=== PATIENT | female | born 1945 | race Caucasian/White ===

== ENCOUNTER 2019-09-08 12:28 | Inpatient (IN) ==
[2019-09-08] MEDS ORDERED: Ibuprofen 600 MG TABLET PO PRN (13:35)
[2019-09-08] MEDS ORDERED: *HR* OxyCODONE/APAP 5/325 TABLET PO PRN (13:35)
[2019-09-08] MEDS: Ibuprofen 600 MG TABLET PO PRN (21:56)
[2019-09-09 05:27] LABS: Basophils % 0.5 %; Eosinophils # 0.3 K/mcL (0.0-0.6); Eosinophils % 7.4 %; Hematocrit 32.3 % (35.3-44.9); Hemoglobin 10.4 g/dL (11.5-15.4); Immature Granulocytes % 0.2 % (0-4); Lymphocytes # 1.3 K/mcL (0.6-4.6); Lymphocytes % 29.5 %; Mean Corpuscular HGB Conc 32.2 g/dL (31.6-35.5); Mean Corpuscular Hemoglobin 29.2 pg (28.0-33.3); Mean Corpuscular Volume 90.7 fL (83.0-100.0); Monocytes % 10.1 %; Neutrophils # 2.3 K/mcL (1.6-8.9); Platelet Count 220 K/mcL (140-400); Red Blood Count 3.56 M/mcL (3.82-4.97); Red Cell Distribution Width 13.8 % (11.5-14.5); Segmented Neutrophils % 52.3 %; White Blood Count 4.4 K/mcL (4.3-11.1)
[2019-09-09 05:38] LABS: Monocytes # 0.4 K/mcL (0.0-1.3)
[2019-09-09 05:41] LABS: Activated Partial Thrombo Time 33.3 Seconds (26.0-36.0); INR 1.1; Prothrombin Time 12.1 Seconds (9.4-12.1)
[2019-09-09 05:46] LABS: eGFR For African Americans > 60 (> 60); eGFR For Non-African Americans > 60 (> 60)
[2019-09-09] MEDS: Cholecalciferol (D-3) 1,000 UNIT (25MCG) TABLET PO SCH (09:28)
[2019-09-09] MEDS: Aspirin Enteric Coated 81 MG Tablet PO SCH (09:28)
[2019-09-09] MEDS: FLUOROURACIL 5% TP SCH ×2 (09:30→16:30)
[2019-09-09] MEDS: Tadalafil [Cialis] 20 MG Tablet PO SCH ×2 (09:30→16:30)
[2019-09-09] MEDS: BIOTIN 5 MG PO SCH ×2 (09:30→16:30)
[2019-09-09] MEDS: Ibuprofen 600 MG TABLET PO PRN ×2 (09:40→22:23)
[2019-09-10] MEDS: BIOTIN 5 MG PO SCH (08:57)
[2019-09-10] MEDS: Aspirin Enteric Coated 81 MG Tablet PO SCH (08:57)
[2019-09-10] MEDS: Cholecalciferol (D-3) 1,000 UNIT (25MCG) TABLET PO SCH (08:58)
[2019-09-10] MEDS: Ibuprofen 600 MG TABLET PO PRN ×2 (09:01→20:14)
[2019-09-10] MEDS: Psyllium 1 PACKET POWD.PACK PO SCH ×2 (14:22→20:14)
[2019-09-10] MEDS: FLUOROURACIL 5% TP SCH (14:24)
[2019-09-11] MEDS: Ibuprofen 600 MG TABLET PO PRN ×2 (09:39→20:25)
[2019-09-11] MEDS: BIOTIN 5 MG PO SCH (09:40)
[2019-09-11] MEDS: Psyllium 1 PACKET POWD.PACK PO SCH ×2 (09:40→20:26)
[2019-09-11] MEDS: Cholecalciferol (D-3) 1,000 UNIT (25MCG) TABLET PO SCH (09:40)
[2019-09-11] MEDS: Aspirin Enteric Coated 81 MG Tablet PO SCH (09:40)
[2019-09-11] MEDS: Tadalafil [Cialis] 20 MG Tablet PO SCH (09:41)
[2019-09-11] MEDS: FLUOROURACIL 5% TP SCH (09:44)
[2019-09-12 06:34] LABS: Basophils % 0.6 %; Eosinophils # 0.4 K/mcL (0.0-0.6); Eosinophils % 5.9 %; Hematocrit 32.8 % (35.3-44.9); Hemoglobin 10.5 g/dL (11.5-15.4); Immature Granulocytes % 0.3 % (0-4); Lymphocytes # 1.3 K/mcL (0.6-4.6); Lymphocytes % 18.5 %; Mean Corpuscular Hemoglobin 29.2 pg (28.0-33.3); Mean Corpuscular Volume 91.1 fL (83.0-100.0); Mean Platelet Volume 9.4 fL (9.4-12.4); Monocytes # 0.7 K/mcL (0.0-1.3); Monocytes % 10.4 %; Neutrophils # 4.4 K/mcL (1.6-8.9); Platelet Count 270 K/mcL (140-400); Red Cell Distribution Width 14.3 % (11.5-14.5); Segmented Neutrophils % 64.3 %; White Blood Count 6.8 K/mcL (4.3-11.1)
[2019-09-12 06:55] LABS: BUN/Creatinine Ratio 26 (6-26); Blood Urea Nitrogen 12 mg/dL (8-23); Calcium 8.4 mg/dL (8.6-10.3); Carbon Dioxide 29 mEq/L (23-29); Chloride 106 mEq/L (98-107); Glucose 84 mg/dL (70-105); Osmolality,Calculated 293 (280-300); Potassium 3.9 mEq/L (3.5-5.1); Sodium 142 mEq/L (136-145); eGFR For African Americans > 60 (> 60); eGFR For Non-African Americans > 60 (> 60)
[2019-09-12] MEDS: Aspirin Enteric Coated 81 MG Tablet PO SCH (08:25)
[2019-09-12] MEDS: Cholecalciferol (D-3) 1,000 UNIT (25MCG) TABLET PO SCH (08:25)
[2019-09-12] MEDS: Psyllium 1 PACKET POWD.PACK PO SCH ×2 (08:25→20:01)
[2019-09-12] MEDS: BIOTIN 5 MG PO SCH (08:28)
[2019-09-12] MEDS: Ibuprofen 600 MG TABLET PO PRN ×2 (09:01→21:57)
[2019-09-12] MEDS: FLUOROURACIL 5% TP SCH (09:02)
[2019-09-12] MEDS ORDERED: *HR* LORazepam 0.5 MG TABLET PO PRN (13:08)
[2019-09-13] MEDS: Aspirin Enteric Coated 81 MG Tablet PO SCH (09:08)
[2019-09-13] MEDS: Cholecalciferol (D-3) 1,000 UNIT (25MCG) TABLET PO SCH (09:08)
[2019-09-13] MEDS: Ibuprofen 600 MG TABLET PO PRN ×2 (09:08→22:31)
[2019-09-13] MEDS: Psyllium 1 PACKET POWD.PACK PO SCH ×2 (09:08→19:43)
[2019-09-13] MEDS: BIOTIN 5 MG PO SCH (09:13)
[2019-09-13] MEDS: Tadalafil [Cialis] 20 MG Tablet PO SCH (09:13)
[2019-09-13] MEDS: FLUOROURACIL 5% TP SCH (10:33)
[2019-09-14] MEDS: Aspirin Enteric Coated 81 MG Tablet PO SCH (09:48)
[2019-09-14] MEDS: Cholecalciferol (D-3) 1,000 UNIT (25MCG) TABLET PO SCH (09:48)
[2019-09-14] MEDS: Psyllium 1 PACKET POWD.PACK PO SCH ×2 (09:48→21:09)
[2019-09-14] MEDS: FLUOROURACIL 5% TP SCH (09:49)
[2019-09-14] MEDS: BIOTIN 5 MG PO SCH (09:52)
[2019-09-14] MEDS: Ibuprofen 600 MG TABLET PO PRN ×2 (11:27→21:09)
[2019-09-15] MEDS: BIOTIN 5 MG PO SCH (09:08)
[2019-09-15] MEDS: Cholecalciferol (D-3) 1,000 UNIT (25MCG) TABLET PO SCH (09:08)
[2019-09-15] MEDS: FLUOROURACIL 5% TP SCH (09:08)
[2019-09-15] MEDS: Tadalafil [Cialis] 20 MG Tablet PO SCH (09:08)
[2019-09-15] MEDS: Psyllium 1 PACKET POWD.PACK PO SCH ×2 (09:08→20:47)
[2019-09-15] MEDS: Aspirin Enteric Coated 81 MG Tablet PO SCH (09:08)
[2019-09-15] MEDS: Ibuprofen 600 MG TABLET PO PRN (20:47)
[2019-09-16 06:16] LABS: Hematocrit 35.3 % (35.3-44.9); Hemoglobin 11.4 g/dL (11.5-15.4); Mean Corpuscular HGB Conc 32.3 g/dL (31.6-35.5); Mean Corpuscular Hemoglobin 29.7 pg (28.0-33.3); Mean Corpuscular Volume 91.9 fL (83.0-100.0); Mean Platelet Volume 9.5 fL (9.4-12.4); Platelet Count 320 K/mcL (140-400); Red Blood Count 3.84 M/mcL (3.82-4.97); Red Cell Distribution Width 14.4 % (11.5-14.5); White Blood Count 9.1 K/mcL (4.3-11.1)
[2019-09-16 06:44] LABS: BUN/Creatinine Ratio 29 (6-26); Blood Urea Nitrogen 16 mg/dL (8-23); Calcium 8.8 mg/dL (8.6-10.3); Carbon Dioxide 32 mEq/L (23-29); Chloride 103 mEq/L (98-107); Glucose 85 mg/dL (70-105); Osmolality,Calculated 294 (280-300); Potassium 4.2 mEq/L (3.5-5.1); Sodium 142 mEq/L (136-145); eGFR For African Americans > 60 (> 60); eGFR For Non-African Americans > 60 (> 60)
[2019-09-16] MEDS: Ondansetron ODT 4 MG TAB.RAPDIS PO PRN (07:52)
[2019-09-16] MEDS: BIOTIN 5 MG PO SCH (07:53)
[2019-09-16] MEDS: FLUOROURACIL 5% TP SCH (07:53)
[2019-09-16] MEDS: Cholecalciferol (D-3) 1,000 UNIT (25MCG) TABLET PO SCH (07:53)
[2019-09-16] MEDS: Psyllium 1 PACKET POWD.PACK PO SCH ×2 (07:53→20:25)
[2019-09-16] MEDS: Aspirin Enteric Coated 81 MG Tablet PO SCH (07:53)
[2019-09-16] MEDS: Ibuprofen 600 MG TABLET PO PRN ×2 (11:55→20:24)
[2019-09-17] MEDS: Ondansetron ODT 4 MG TAB.RAPDIS PO PRN (06:31)
[2019-09-17] MEDS: Cholecalciferol (D-3) 1,000 UNIT (25MCG) TABLET PO SCH (08:06)
[2019-09-17] MEDS: Aspirin Enteric Coated 81 MG Tablet PO SCH (08:06)
[2019-09-17] MEDS: Psyllium 1 PACKET POWD.PACK PO SCH ×2 (08:06→21:38)
[2019-09-17] MEDS: Tadalafil [Cialis] 20 MG Tablet PO SCH (08:08)
[2019-09-17] MEDS: BIOTIN 5 MG PO SCH (08:08)
[2019-09-17] MEDS: FLUOROURACIL 5% TP SCH (08:08)
[2019-09-17] MEDS: Ibuprofen 600 MG TABLET PO PRN ×2 (11:14→21:39)
[2019-09-18 06:52] VITALS: BP 119/70
[2019-09-18] MEDS: Cholecalciferol (D-3) 1,000 UNIT (25MCG) TABLET PO SCH (08:23)
[2019-09-18] MEDS: BIOTIN 5 MG PO SCH (08:24)
[2019-09-18] MEDS: Psyllium 1 PACKET POWD.PACK PO SCH (08:24)
[2019-09-18] MEDS: Aspirin Enteric Coated 81 MG Tablet PO SCH (08:24)
[2019-09-18] MEDS: FLUOROURACIL 5% TP SCH (08:34)
== END 2019-09-18 13:31 | disposition home health service (06) | DRG 949 ==
LOC: INPPIK 15:44
PROVIDERS: ADMIT Family Medicine; ATTEND Family Medicine